=== PATIENT | female | born 1980 | race Caucasian/White ===

== ENCOUNTER → 2017-12-09 | Outpatient (REF) | payer OTHER ==
[2017-12-09 13:55] LABS: PROGESTERONE < 0.2 NG/ML
[2017-12-09 13:55] LABS: ESTRADIOL 28.7 PG/ML
== END ==
LOC: M LABDRAW1 11:20
DX: E28.9 Ovarian dysfunction, unspecified (principal)

== ENCOUNTER → 2017-12-14 | Outpatient (REF) | payer OTHER ==
[2017-12-14 12:39] LABS: PROGESTERONE < 0.2 NG/ML
[2017-12-14 12:39] LABS: ESTRADIOL 27.3 PG/ML; LUTEINIZING HORMONE 0.8 mIU/mL
== END ==
LOC: M LABDRAW1 12:11
DX: E28.9 Ovarian dysfunction, unspecified (principal)

== ENCOUNTER → 2017-12-16 | Outpatient (REF) | payer OTHER ==
[2017-12-16 11:57] LABS: PROGESTERONE 0.21 NG/ML
[2017-12-16 11:57] LABS: ESTRADIOL 24.5 PG/ML; LUTEINIZING HORMONE 0.9 mIU/mL
== END ==
LOC: M LABDRAW1 11:24
DX: E28.9 Ovarian dysfunction, unspecified (principal)

== ENCOUNTER → 2017-12-21 | Outpatient (REF) | payer OTHER, BC ==
[2017-12-21 12:31] LABS: PROGESTERONE 0.21 NG/ML
[2017-12-21 12:31] LABS: ESTRADIOL 478.3 PG/ML; LUTEINIZING HORMONE 1.6 mIU/mL
== END ==
LOC: M LABDRAW1 12:03
DX: E28.9 Ovarian dysfunction, unspecified (principal)

== ENCOUNTER → 2017-12-31 | Outpatient (REF) | payer BC, OTHER ==
[2017-12-31 12:42] LABS: ESTRADIOL 785.3 PG/ML
== END ==
LOC: M LAB 11:58
DX: E28.9 Ovarian dysfunction, unspecified (principal)
CPT/HCPCS: 82670

== ENCOUNTER → 2018-01-05 | Outpatient (REF) | payer BC ==
[2018-01-05 13:00] LABS: HCG, SERUM QUANTITATIVE < 1.0 MIU/ML
[2018-01-05 13:08] LABS: PROGESTERONE 26.13 NG/ML
== END ==
LOC: M LABDRAW1 11:48
DX: E28.9 Ovarian dysfunction, unspecified (principal)
CPT/HCPCS: 84702

== ENCOUNTER → 2018-01-12 | Outpatient (REF) | payer OTHER ==
[2018-01-12 12:32] LABS: HCG, SERUM QUANTITATIVE < 1.0 MIU/ML
[2018-01-12 12:35] LABS: ESTRADIOL < 19.0 PG/ML; FOLLICLE STIMULATING HORMONE 4.8 mIU/mL; LUTEINIZING HORMONE 0.7 mIU/mL
[2018-01-12 12:35] LABS: PROGESTERONE 0.38 NG/ML
== END ==
LOC: M LABDRAW1 09:07
DX: E28.9 Ovarian dysfunction, unspecified (principal)
CPT/HCPCS: 83001

== ENCOUNTER → 2018-01-20 | Outpatient (REF) | payer OTHER ==
[2018-01-20 12:21] LABS: PROGESTERONE 0.21 NG/ML
[2018-01-20 12:21] LABS: ESTRADIOL 340.1 PG/ML; LUTEINIZING HORMONE 0.4 mIU/mL
== END ==
LOC: M LABDRAW1 09:28
DX: E28.9 Ovarian dysfunction, unspecified (principal)
CPT/HCPCS: 83002

== ENCOUNTER → 2018-01-27 | Outpatient (REF) | payer OTHER ==
[2018-01-27 12:22] LABS: ESTRADIOL 1664.7 PG/ML; LUTEINIZING HORMONE < 0.1 mIU/mL; PROGESTERONE 0.21 NG/ML
== END ==
LOC: M LABDRAW1 09:34
PROVIDERS: ATTEND Obstetrics & Gynecology Reproductive Endocrinology
DX: E28.9 Ovarian dysfunction, unspecified (principal)

== ENCOUNTER → 2018-02-03 | Outpatient (REF) | payer OTHER ==
[2018-02-03 10:56] LABS: ESTRADIOL 1841.3 PG/ML; LUTEINIZING HORMONE < 0.1 mIU/mL; PROGESTERONE 0.21 NG/ML
== END ==
LOC: M LABDRAW1 09:16
PROVIDERS: ATTEND Obstetrics & Gynecology Reproductive Endocrinology
DX: E28.9 Ovarian dysfunction, unspecified (principal)

== ENCOUNTER → 2018-02-10 | Outpatient (REF) | payer OTHER ==
[2018-02-10 13:38] LABS: ESTRADIOL 1929.1 PG/ML; LUTEINIZING HORMONE < 0.1 mIU/mL; PROGESTERONE 0.21 NG/ML
== END ==
LOC: M LABDRAW1 12:13
PROVIDERS: ATTEND Obstetrics & Gynecology Reproductive Endocrinology
DX: E28.9 Ovarian dysfunction, unspecified (principal)

== ENCOUNTER → 2018-02-21 | Outpatient (REF) | payer OTHER ==
[2018-02-21 11:50] LABS: THYROID STIMULATING HORMONE 1.69 uIU/ML (0.358-3.740)
[2018-02-21 16:11] LABS: ESTRADIOL 4837.3 PG/ML; PROGESTERONE 55.29 NG/ML
== END ==
LOC: M LABDRAW1 11:04
PROVIDERS: ATTEND Obstetrics & Gynecology Reproductive Endocrinology
DX: E28.9 Ovarian dysfunction, unspecified (principal)

== ENCOUNTER → 2018-03-30 | Outpatient (REF) | payer OTHER ==
[2018-03-30 12:37] LABS: PROGESTERONE 36.24 NG/ML
== END ==
LOC: M LABDRAW1 11:37
PROVIDERS: ATTEND Obstetrics & Gynecology Reproductive Endocrinology
DX: E28.9 Ovarian dysfunction, unspecified (principal)

== ENCOUNTER → 2018-04-06 | Outpatient (REF) | payer OTHER ==
[2018-04-06 12:22] LABS: HCG, SERUM QUANTITATIVE 2 MIU/ML
[2018-04-06 12:23] LABS: LUTEINIZING HORMONE < 0.1 mIU/mL
[2018-04-06 12:24] LABS: ESTRADIOL 32.2 PG/ML; FOLLICLE STIMULATING HORMONE 0.4 mIU/mL
[2018-04-06 13:14] LABS: PROGESTERONE 1.54 NG/ML
== END ==
LOC: M LABDRAW1 09:12
PROVIDERS: ATTEND Obstetrics & Gynecology Reproductive Endocrinology
DX: E28.9 Ovarian dysfunction, unspecified (principal)

== ENCOUNTER → 2018-04-21 | Outpatient (REF) | payer OTHER ==
[2018-04-21 12:54] LABS: ESTRADIOL 141.5 PG/ML; LUTEINIZING HORMONE < 0.1 mIU/mL; PROGESTERONE 0.21 NG/ML
== END ==
LOC: M LABDRAW1 11:47
PROVIDERS: ATTEND Obstetrics & Gynecology Reproductive Endocrinology
DX: E28.9 Ovarian dysfunction, unspecified (principal)

== ENCOUNTER → 2018-05-10 | Outpatient (REF) | payer OTHER ==
[2018-05-10 12:58] LABS: ESTRADIOL 1580.6 PG/ML; PROGESTERONE 35.4 NG/ML; THYROID STIMULATING HORMONE 1.11 uIU/ML (0.358-3.740)
== END ==
LOC: M LABDRAW1 11:44
PROVIDERS: ATTEND Obstetrics & Gynecology Reproductive Endocrinology
DX: Z31.49 Encounter for other procreative investigation and testing (principal)

== ENCOUNTER → 2018-05-10 | Outpatient (REF) | payer OTHER ==
[2018-05-10 12:59] LABS: ALBUMIN 3.6 GM/DL (3.2-5.2); ALT/SGPT 18 U/L (12-78); BILIRUBIN,TOTAL 0.4 MG/DL (0.2-1.0); BLOOD UREA NITROGEN 15 MG/DL (7-18); C REACTIVE PROTEIN QUANTITATIV < 0.30 MG/DL (0.00-0.30); CALCIUM LEVEL 8.6 MG/DL (8.5-10.1); CARBON DIOXIDE LEVEL 26 MEQ/L (21-32); CHLORIDE LEVEL 104 MEQ/L (98-107); CREATININE FOR GFR 0.76 MG/DL (0.55-1.30); FERRITIN 35 NG/ML (8-252); GLOMERULAR FILTRATION RATE > 60.0 (>60); GLUCOSE, FASTING 91 MG/DL (70-100); IRON (FE) 126 UG/DL (50-170); PERCENT SATURATION 31.2 % (13.2-45.0); POTASSIUM SERUM 4.1 MEQ/L (3.5-5.1); SODIUM LEVEL 139 MEQ/L (136-145); TOTAL IRON BINDING CAPACITY 404 UG/DL (250-450); TOTAL PROTEIN 6.8 GM/DL (6.4-8.2)
[2018-05-10 14:04] LABS: HEMOGLOBIN 11.8 g/dl (12.0-15.5); MEAN CORPUSCULAR HEMOGLOBIN 32.3 pg (27.0-33.0); MEAN CORPUSCULAR HGB CONC 32.8 g/dl (32.0-36.5); MEAN CORPUSCULAR VOLUME 98.6 fl (80.0-96.0); PLATELET COUNT, AUTOMATED 268 10^3/uL (150-450); RED BLOOD COUNT 3.65 10^6/uL (4.00-5.40); WHITE BLOOD COUNT 9.3 10^3/uL (4.0-10.0)
[2018-05-10 14:55] LABS: ERYTHROCYTE SEDIMENTATION RATE 17 mm/hr (0-20)
== END ==
LOC: M LABDRAW1 11:42
PROVIDERS: ATTEND Nurse Practitioner Family
DX: K51.50 Left sided colitis without complications (principal)

== ENCOUNTER → 2018-05-17 | Outpatient (REF) | payer OTHER ==
[2018-05-17 13:07] LABS: THYROID STIMULATING HORMONE 1.29 uIU/ML (0.358-3.740)
[2018-05-17 13:10] LABS: PROGESTERONE 30.01 NG/ML
== END ==
LOC: M LABDRAW1 12:03
PROVIDERS: ATTEND Obstetrics & Gynecology Reproductive Endocrinology
DX: Z31.49 Encounter for other procreative investigation and testing (principal)

== ENCOUNTER → 2018-06-01 | Outpatient (REF) | payer OTHER ==
[2018-06-01 13:11] LABS: ESTRADIOL 1612.9 PG/ML; PROGESTERONE 41.41 NG/ML; THYROID STIMULATING HORMONE 1.21 uIU/ML (0.358-3.740)
== END ==
LOC: M LABDRAW1 11:36
PROVIDERS: ATTEND Obstetrics & Gynecology Reproductive Endocrinology
DX: Z32.01 Encounter for pregnancy test, result positive (principal); Z3A.00 Weeks of gestation of pregnancy not specified

== ENCOUNTER → 2018-06-08 | Outpatient (REF) | payer OTHER ==
[2018-06-08 13:40] LABS: THYROID STIMULATING HORMONE 0.554 uIU/ML (0.358-3.740)
[2018-06-08 13:56] LABS: ESTRADIOL 1270.2 PG/ML
[2018-06-08 14:46] LABS: PROGESTERONE 64.92 NG/ML
== END ==
LOC: M LABDRAW1 11:56
PROVIDERS: ATTEND Obstetrics & Gynecology Reproductive Endocrinology
DX: Z32.01 Encounter for pregnancy test, result positive (principal)

== ENCOUNTER → 2019-01-17 | Outpatient (REF) | LOC: M LAB LCGH 13:55 | DX: Z13.9 Encounter for screening, unspecified (principal) ==

== ENCOUNTER → 2019-02-28 | Outpatient (REF) | payer BC | LOC: M LAB LCGH 12:06 | DX: Z12.4 Encounter for screening for malignant neoplasm of cervix (principal) ==